=== PATIENT | female | born 1960 | race American Indian/Alaskan Native ===

== ENCOUNTER 2020-04-03 11:11 | Outpatient (CLI) | payer BC ==
--- NOTE | 2020-04-03 14:49 | XRay Report ---
BILATERAL WRIST 2 VIEWS INDICATION: Bilateral wrist pain. COMPARISON: None. IMPRESSION: No acute osseous or soft tissue abnormality. No significant DJD. BILATERAL HANDS 3 VIEWS INDICATION: Bilateral hand pain. COMPARISON: None. IMPRESSION: No acute osseous or soft tissue abnormality. No significant DJD. Signer Name: Shiva Alvarez Jr, MD Signed: 04/03/2020 2:44 PM Workstation Name: [id number]
== END 2020-04-03 11:12 | disposition home or self-care (01) ==
LOC: XRAY 11:11
PROVIDERS: ATTEND Clinical Nurse Specialist Adult Health
DX: M79.641 Pain in right hand (principal); M79.642 Pain in left hand; M25.532 Pain in left wrist; M25.531 Pain in right wrist

== ENCOUNTER 2021-04-02 10:32 | Outpatient (CLI) | payer BC ==
--- NOTE | 2021-04-02 11:56 | XRay Report ---
BILATERAL SHOULDERS 6 VIEWS INDICATION / CLINICAL INFORMATION: BILATERAL SHOULDER PAIN COMPARISON: None available. FINDINGS: BONES and JOINT(S): No acute fracture or subluxation. 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 The glenohumeral joints are maintained. SOFT TISSUES: No significant abnormality. ADDITIONAL FINDINGS: None. IMPRESSION: Mild degenerative changes of the shoulders as above. Signer Name: Zach Serrato MD Signed: 04/02/2021 11:52 AM Workstation Name: [id number]
== END 2021-04-02 10:33 | disposition home or self-care (01) ==
LOC: XRAY 10:32
PROVIDERS: ATTEND Physician Assistant Medical
DX: M19.012 Primary osteoarthritis, left shoulder (principal); M19.011 Primary osteoarthritis, right shoulder

== ENCOUNTER 2021-08-13 14:38 | Outpatient (CLI) | payer BC | END 2021-08-13 14:39 | disposition home or self-care (01) | LOC: MAMMO 14:38 | PROVIDERS: ATTEND Clinical Nurse Specialist Adult Health | DX: Z12.31 Encounter for screening mammogram for malignant neoplasm of breast (principal) | CPT/HCPCS: 77067 ==

== ENCOUNTER 2021-10-20 08:05 | Outpatient (CLI) | payer BC ==
[2021-10-20] MEDS ORDERED: REGADENOSON 0.4 MG/5 ML INJ IV ONE (08:57)
--- NOTE | 2021-10-21 09:34 | Nuclear Medicine Report ---
APPROVED REPORT Exam: Nuclear Stress Test Indication: Abnormal EKG [facility]: O[facility]P Ht: 5 ft 6 in Wt: 168 lbs BSA: 1.86 m2 HR: 55 bpmBP: 155/78 mmHgBMI: 27.11 Rhythm: Sinus Bradycardia Stress Test Details Stress Test: Exercise stress testing was performed using a Mary protocol. HR Resting HR: 56 bpm Max HR Achieved: 167 bpm Max Heart Rate (APMHR): 159.330700 bpm Target HR (85% APMHR): 135.375996 bpm % of APMHR: 105.03 Recovery HR: 84 bpm HR response to stress: Normal HR response to stress BP Resting BP: 155/78 mmHg Max BP: 192/89 mmHg Recovery BP: 146/85 mmHg BP response to stress: Normal blood pressure response to stress. ECG Resting ECG: Sinus Bradycardia Stress ECG: Sinus Tachycardia Arrhythmia: VPC's Recovery ECG: Sinus Rhythm Recovery Arrhythmia: VPC Clinical Reason for Termination: Fatigue Stress Symptoms: Fatigue Exercise duration: 10 min 1 sec Exercise capacity: 10.9 METs Overall Exercise Capacity for Age: Good NM EXAM: Myocardial Perfusion REST/STRESS Imaging Protocol: Rest Tc-99m/Stress Tc-99m 1 day Resting Data Rest SPECT myocardial perfusion imaging was performed in supine position 45 minutes following the intravenous injection of 10 mCi of Tc-99m Myoview. Time of rest injection: 844 Date: 10/20/2021 Pharmacologic Stress Pharmacologic stress test was performed by injecting Regadenoson 0.4 mg IV push followed by the intravenous injection of 28 mCi of Tc-99m Myoview. Time of stress injection: 10:24:16 Date: 10/20/2021 Gated Stress SPECT was performed 30 minutes after stress injection. The images were gated to evaluate regional wall motion and calculate left ventricular ejection fraction. Study Data TID = 1.10. Perfusion Nuclear Conclusion ECG Findings: negative for ischemia Clinical Findings: negative for ischemia Nuclear Findings: negative for ischemia Exercise Capacity: normal Left Ventricular Function: normal Risk Study: low negative treadmill stress , good exericise capacity 10 minutes mary protocol, no exaggerated bp response to exercise Normal study. No scintigraphic evidence for myocardial ischemia or scar. Normal left ventricular size and function with no regional wall motion abnormalities.
== END 2021-10-20 08:06 | disposition home or self-care (01) ==
LOC: CARD 08:05
PROVIDERS: ATTEND Internal Medicine
DX: R94.31 Abnormal electrocardiogram [ECG] [EKG] (principal); R00.1 Bradycardia, unspecified; I10 Essential (primary) hypertension; R06.02 Shortness of breath
CPT/HCPCS: 78452; 93017; A9502; C8929; J2785; 93306